=== PATIENT | male | born 1995 | race Caucasian/White ===

== ENCOUNTER 2018-09-19 07:36 | Emergency (ER) | payer BC, OTHER ==
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
[2018-09-19] MEDS ORDERED: CYCLOBENZAPRINE 10 MG TAB ONE (08:51)
[2018-09-19] MEDS ORDERED: IBUPROFEN 200 MG TAB PO ONE (08:51)
[2018-09-19] MEDS ORDERED: IBUPROFEN 400 MG TAB ONE (08:51)
[2018-09-19] MEDS ORDERED: HYDROCODONE/APAP 10/325 TAB ONE (08:52)
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
--- NOTE | 2018-09-19 09:37 | RAD REPORT ---
EXAM DESCRIPTION: RAD - Thoracic Spine Ap/Lat - 09/19/2018 8:33 am CLINICAL HISTORY: Back pain FINDINGS: The alignment of the thoracic spine is satisfactory. No fracture or dislocation is seen.
[2018-09-19] MEDS ORDERED: ACETAMINOPHEN 325 MG TABLET ONE (10:02)
== END 2018-09-19 10:03 | disposition home or self-care (01) ==
LOC: ER 07:36
DX: S16.1XXA Strain of muscle, fascia and tendon at neck level, initial encounter (principal); S29.012A Strain of muscle and tendon of back wall of thorax, initial encounter; V49.49XA Driver injured in collision with other motor vehicles in traffic accident, initial encounter
CPT/HCPCS: 72070; 72125; 99284